=== PATIENT | female | born 1990 | race American Indian/Alaskan Native ===

== ENCOUNTER 2017-04-26 16:06 | Emergency (ER) | payer SELFPAY ==
[2017-04-26 16:11] VITALS: BP 175/91
== END 2017-04-26 22:30 | disposition left against medical advice (07) ==
LOC: ED 16:06
DX: R50.9 Fever, unspecified (principal); R06.02 Shortness of breath; J02.9 Acute pharyngitis, unspecified; Z53.21 Procedure and treatment not carried out due to patient leaving prior to being seen by health care provider